=== PATIENT | female | born 1970 | race Caucasian/White ===

== ENCOUNTER 2020-02-20 07:25 | Outpatient (CLI) | payer OTHER, SELFPAY ==
--- NOTE | ~2020-02-20 | MM_ITS ---
EXAMINATION: MM screening zeus BI w mirza HISTORY: Screening mammogram TECHNIQUE: Craniocaudal and mediolateral oblique 3-D tomosynthesis images were obtained and synthetic 2-D images were generated. CAD analysis was submitted and interpreted. COMPARISON: 01/31/2017, 01/11/2016, 03/08/2013 bilateral digital screening mammogram examinations BREAST PARENCHYMAL COMPOSITION: There are scattered areas of fibroglandular density. FINDINGS: There is no evidence of suspicious mass, calcification, or architectural distortion to sugg est malignancy in either breast. There has been no suspicious interval change. IMPRESSION: 1. No mammographic evidence of malignancy. 2. Recommend routine screening mammography in one year. BI-RADS Category 1: Negative Reviewed, dictated and finalized at location A.
== END 2020-02-20 07:26 | disposition home or self-care (01) ==
PROVIDERS: PCP Physician Assistant; Visit Provider Obstetrics & Gynecology
DX: Z12.31 Encounter for screening mammogram for malignant neoplasm of breast (principal)
CPT/HCPCS: 77063; 77067

== ENCOUNTER 2021-08-18 20:22 | Emergency (ER) | payer OTHER, SELFPAY ==
--- NOTE | ~2021-08-18 | XR_ITS ---
EXAMINATION: XR chest 2V DATE: 08/19/2021 00:30 INDICATION: Medial and left-sided chest pain. TECHNIQUE: Frontal and lateral views of the chest were obtained. COMPARISON: Chest 2 views 08/26/2013 FINDINGS: The chest demonstrates clear lungs without pneumonia, pleural effusion, or pneumothorax. Th e heart size is normal. IMPRESSION: 1. No acute cardiopulmonary disease. Reviewed, dictated and finalized at location A. FACER
[2021-08-18 20:29] VITALS: BP 147/93; PULSE 105; RESP 20; TEMP 36.3; O2SAT 98
--- NOTE | 2021-08-18 20:31 | ECG_ITS ---
Measurements Intervals [place] Rate: 107 P: 37 PA: 136 QRS: 30 QRSD: 85 T: -9 QT: 328 QTc: 438 Interpretive Statements SINUS TACHYCARDIA NONSPECIFIC T-WAVE ABNORMALITY- ANT/INF LEADS BASELINE ARTIFACT- II, III, AVF ABNORMAL ECG Electronically Signed On 08-19-2021 7:41:38 HOSIERY OPERATOR by Reza Dillon D.O.
[2021-08-18 20:59] LABS: Basophils Absolute Auto 0.1 K/mm3 (0.0-0.1); Basophils Percent Auto 0.5 % (0.2-1.2); Eosinophils Absolute Auto 0.2 K/mm3 (0-0.3); Eosinophils Percent Auto 2.3 % (0-4.4); Hematocrit 43.2 % (37.0-47.0); Hemoglobin 14.8 g/dL (12.0-15.0); Immature Granulocyte Absolute 0.03 K/mm3 (0.00-0.031); Immature Granulocyte Percent A 0.3 % (0-0.5); Lymphocytes Absolute Auto 2.38 K/mm3 (0.9-3.2); Lymphocytes Percent Auto 23.8 % (18.3-44.2); Mean Corpuscular HGB Conc 34.3 g/dl (32-36); Mean Corpuscular Hemoglobin 28.7 pg (26-34); Mean Corpuscular Volume 83.9 fl (80-100); Mean Platelet Volume 10.1 fl (7.4-10.4); Monocytes Absolute Auto 0.7 K/mm3 (0.1-0.6); Monocytes Percent Auto 7.4 % (2.6-8.5); Neutrophils Absolute Auto 6.6 K/mm3 (1.3-6.7); Neutrophils Percent Auto 65.7 % (45.5-73.1); Platelet Count Result 318 k/mm3 (150-375); Red Blood Count 5.15 M/mm3 (4.2-5.4); Red Cell Distribution Width 13.1 % (11.5-14.5)
[2021-08-18 21:11] LABS: INR 0.8; Prothrombin Time 11.3 Seconds (11.1-14.7)
[2021-08-18 21:12] LABS: Partial Thromboplastin Time 22.5 SECONDS (22.3-36.8)
[2021-08-18 21:14] LABS: Alanine Aminotransferase 24 U/L (4-35); Albumin Level 4.6 g/dL (3.5-5.1); Alkaline Phosphatase 72 U/L (38-126); Anion Gap 10 mmol/L (8-16); Aspartate Amino Transferase 29 U/L (14-36); Bilirubin,Total 0.6 mg/dL (0.2-1.3); Blood Urea Nitrogen 18 mg/dL (7-17); Carbon Dioxide 26 mmol/L (22-30); Chloride 98 mmol/L (98-107); Estimated CRCL calculation 82 ml/min; Estimated Glomerular Filt Rate > 60; Glucose 92 mg/dL (65-110); Lipase 155 U/L (23-300); Potassium 4.7 mmol/L (3.4-5.0); Sodium 134 mmol/L (137-145)
[2021-08-18 21:21] LABS: Troponin I < 0.012 ng/mL (0.000-0.034)
[2021-08-18] MEDS: ASPIRIN 81 MG CHEWABLE TABLET 324 MG PO (23:28)
[2021-08-18 23:31] VITALS: BP 152/91; PULSE 108; RESP 18; TEMP 36.6; O2SAT 100
--- NOTE | 2021-08-18 23:33 | ED.ARRPALP ---
HPI - Arrhythmia/Palpitations General Chief Complaint: Arrhythmia/Palpitations Stated Complaint: INCREASED HR Time Seen by Provider: 08/18/21 23:33 Source: patient Mode of arrival: ambulatory Limitations: no limitations History of Present Illness HPI narrative: Patient is a 51-year-old female complaining of palpitations, intermittent for the past few days. Patient states that her heart rate would go up to 140s at home. Patient denies any chest pain, shortness of breath, abdominal pain, nausea, vomiting, diaphoresis, fever or chills. Related Data Allergies Allergy/AdvReac Type Severity Reaction Status Date / Time poison ruddy extract Allergy Intermediate Swelling Verified 08/18/21 20:23 poison oak extract Allergy Intermediate Swelling Verified 08/18/21 20:23 desipramine Allergy Unknown Skin Verified 08/18/21 20:23 Reaction Review of Systems Review of Systems: All systems reviewed & are unremarkable except as noted in HPI and below Constitutional: Constitutional: Denies body ache(s), Denies chills, Denies excessive sweating, Denies fatigue, Denies fever(s), Denies headache(s), Denies lethargy, Denies malaise, Denies weakness and Denies weight loss Eyes: Eyes: Denies blurry vision, Denies change in vision and Denies loss of vision ENT: Denies dizziness, Denies ear discharge, Denies headache(s), Denies lip swelling, Denies epistaxis, Denies nasal congestion, Denies neck pain, Denies throat swelling and Denies tongue swelling Cardiovascular: Cardiovascular: Denies chest pain, Denies chest pain at rest, Denies chest pain with activity, Denies diaphoresis, Denies rapid heart rate, Denies edema, Denies irregular heart rhythm, Denies lightheadedness, Denies dyspnea and Denies dyspnea on exertion Respiratory: Respiratory: Denies chest congestion, Denies cough, Denies hemoptysis, Denies dyspnea and Denies dyspnea on exertion Gastrointestinal: Gastrointestinal: Denies abdominal pain, Denies melena, Denies hematochezia, Denies diarrhea, Denies nausea, Denies vomiting and Denies hematemesis Musculoskeletal: Musculoskeletal: Denies abnormal gait, Denies deformity, Denies joint swelling, Denies limited range of motion, Denies neck pain and Denies numbness Neurologic: Denies Abnormal speech present, Denies abnormal gait, Denies confusion, Denies dizziness, Denies headache(s), Denies focal weakness, Denies loss of vision, Denies numbness, Denies Other visual disturbances, Denies Sensory deficit (Neuro) and Denies weakness Psychiatric: Psychiatric: Denies confusion, Denies depression, Denies auditory hallucinations, Denies homicidal ideation and Denies suicidal ideation Endocrine: Endocrine: Denies cold intolerance, Denies excessive sweating, Denies fatigue, Denies heat intolerance and Denies palpitations Hematologic/Lymphatic: Hematologic/Lymphatic: Denies easy bleeding and Denies easy bruising Allergic/Immunologic: Allergic/Immunologic: Denies lip swelling, Denies throat swelling and Denies tongue swelling [facility] Social History Social History Smoking status: Never smoker Alcohol intake: current Comments Past medical history: None Family history: Hypertension Social history: Non-smoker no EtOH or drug use Exam Const: General: cooperative, healthy appearing, comfortable, no acute distress, well developed, alert and awake; No confusion Orientation/consciousness: oriented to person, oriented to place, oriented to time, patient oriented x3 and No confusion Limitations: no limitations HENMT: Head: normal to inspection, normocephalic and atraumatic Ears: hearing grossly normal bilaterally, TM normal on the right and TM normal on the left General nose exam: Normal external nose present, Normal nares present and No nasal discharge present Face and sinus: normal facial exam Mouth: Yes Normal oral and palatal mucosa present, Yes lip normal, Yes tongue normal and Yes oropharynx normal Jose Eduardo
[2021-08-18 23:46] LABS: D Dimer 0.28 ug/mL (<0.48)
[2021-08-19 00:30] LABS: Troponin I < 0.012 ng/mL (0.000-0.034)
[2021-08-19 01:11] VITALS: BP 128/77; PULSE 86; RESP 18; O2SAT 100
[2021-08-19 02:51] LABS: Free T4 Free Thyroxine Reflex 0.88 ng/dL (0.78-2.19)
[2021-08-19 03:40] LABS: Total Triiodothyronine (T3) 1.78 NG/ML (0.97-1.69)
== END 2021-08-19 01:12 | disposition home or self-care (01) ==
PROVIDERS: Emergency Provider Emergency Medicine
DX: R00.2 Palpitations (principal); R00.0 Tachycardia, unspecified; R94.31 Abnormal electrocardiogram [ECG] [EKG]
CPT/HCPCS: 36415; 71046; 80053; 83690; 84439; 84443; 84480; 84484; 85025; 85380; 85610; 85730; 93005; 99284; A9270